=== PATIENT | female | born 1960 | race Caucasian/White ===

== ENCOUNTER → 2016-12-23 | Outpatient (CLI) | payer OTHER ==
--- NOTE | 2016-12-23 14:38 | XR ---
Lumbar spine HISTORY: Low back pain 3 views of the lumbar spine, no comparisons There is multilevel spondylosis. Lumbar vertebral bodies show preserved height and alignment. Loss of disc height at the intervertebral levels especially at L5-S1 and L1-T12 L1. Sclerosis present in the posterior elements. Bone mineralization is reduced. IMPRESSION: Degenerative disc disease, facet arthropathy, osteopenia.
== END | disposition home or self-care (01) ==
LOC: RADXRMAIN 09:38
PROVIDERS: ATTEND Family Medicine
DX: M51.36 Other intervertebral disc degeneration, lumbar region (principal); M12.88 Other specific arthropathies, not elsewhere classified, other specified site; M85.80 Other specified disorders of bone density and structure, unspecified site
CPT/HCPCS: 72100

== ENCOUNTER → 2017-06-09 | Outpatient (CLI) | payer OTHER | END | disposition home or self-care (01) | LOC: LABWHC1 13:43 | PROVIDERS: ATTEND Physician Assistant | DX: Z01.818 Encounter for other preprocedural examination (principal) | CPT/HCPCS: 93005 ==

== ENCOUNTER 2017-11-26 09:45 | Day surgery (SDC) | payer OTHER ==
[2017-11-24 09:47] VITALS: BMI 55.7
[~2017-11-26 09:45] MED LIST: LACTATED RINGERS 1,000 ML IV SCH
[2017-11-26 11:00] VITALS: RESP 18; TEMP 97.2
[2017-11-26] MEDS ORDERED: LIDOCAINE 1% 20 ML VIAL (10MG/ML) FOR IV START INTRADERMA ONE (11:02)
[2017-11-26] MEDS ORDERED: PROPOFOL 10 MG/ML 20 ML VIAL IV ONE (11:53)
[2017-11-26] MEDS ORDERED: LIDOCAINE 1% INJ 10MG/ML (20 ML MDV) ONE (11:53)
--- NOTE | 2017-11-26 12:15 | P.PCN ---
Date of Procedure: 11/26/17 Procedure(s) Performed: BRIEF HISTORY: Patient is a 57-year-old pleasant white female, scheduled for an elective colonoscopy as a part of evaluation of right lower quadrant abdominal pain for the last 6 months duration. She has the symptoms once or twice a week and lasts for almost 2-3 hours each time. She GI via and workup was negative. PROCEDURE PERFORMED: Colonoscopy with snare polypectomy. PREOPERATIVE DIAGNOSIS: Right lower quadrant abdominal pain and change in bowel habits. IV sedation per Anesthesia. PROCEDURE: After informed consent was obtained, the patient, was brought into the endoscopy unit. IV sedation was administered by Anesthesia under continuous monitoring. Digital rectal examination was normal. Initially the Olympus CF- 160 flexible video colonoscope was then inserted in the rectum, gradually advanced into the cecum without any difficulty. Careful examination was performed as the scope was gradually being withdrawn. Ileocecal valve and the appendiceal orifice were visualized and appeared normal. Prep was excellent. Mucosa of the cecum, appeared normal. In the ascending colon there was a 7 mm sessile polyp removed by snare polypectomy. The rest of the ascending colon, transverse colon, descending colon, sigmoid colon, and rectum appeared normal. In the distal sigmoid colon there was a 3-4 mm sessile polyp removed by snare polypectomy. Retroflexion was performed in the rectum and no lesions were seen. The patient tolerated the procedure well. IMPRESSION: 7 mm sessile ascending colon polyp status post polypectomy 3-4 mm sessile sigmoid colon polyp status post polypectomy RECOMMENDATIONS: Findings of this examination were discussed with the patient as well as a family. She was advised to follow with the biopsy results. If the biopsy shows a tubular adenoma she can have a repeat colonoscopy in 5 years.
[2017-11-26 12:20] VITALS: PULSE 75
[2017-11-26 12:47] VITALS: BP 130/72
== END 2017-11-26 13:03 | disposition home or self-care (01) ==
LOC: ORWHC2ENDO 09:45
PROVIDERS: ATTEND Internal Medicine Gastroenterology
DX: D12.5 Benign neoplasm of sigmoid colon (principal); R19.4 Change in bowel habit; R10.31 Right lower quadrant pain; I10 Essential (primary) hypertension; E66.01 Morbid (severe) obesity due to excess calories; Z79.899 Other long term (current) drug therapy; Z88.5 Allergy status to narcotic agent; Z68.43 Body mass index [BMI] 50.0-59.9, adult
CPT/HCPCS: 81025; 88305; 45385; J2001; J2704

== ENCOUNTER → 2018-01-18 | Outpatient (CLI) | payer OTHER ==
--- NOTE | 2018-01-18 12:34 | US ---
EXAMINATION TYPE: US venous doppler duplex LE LT DATE OF EXAM: 01/18/2018 11:22 AM COMPARISON: US CLINICAL HISTORY: M79.605 PAIN IN LT LEG. SIDE PERFORMED: Left TECHNIQUE: The lower extremity deep venous system is examined utilizing real time linear array sonog isabella with graded compression, doppler sonography and color-flow sonography. VESSELS IMAGED: External Iliac Vein (EIV) Common Femoral Vein Deep Femoral Vein Greater Saphenous Vein * Femoral Vein Popliteal Vein Small Saphenous Vein * Proximal Calf Veins (* superficial vessels) Scanned patient's area of concern, posterior left calf, no abnormality noted. Limited exam due to gracie ma and patient body habitus. Left Leg: Negative for DVT Grayscale, color doppler, spectral doppler imaging performed of the deep veins of the left lower extr emity. There is normal flow, compressibility, vascular waveforms. IMPRESSION: No sonographic evidence of deep venous thrombosis within the left lower extremity.
== END ==
LOC: RADUSWWP 11:20
PROVIDERS: ATTEND Family Medicine
DX: M79.605 Pain in left leg (principal)

== ENCOUNTER → 2019-02-16 | Outpatient (CLI) | payer OTHER ==
--- NOTE | 2019-02-16 08:01 | US ---
EXAMINATION TYPE: US abdomen complete DATE OF EXAM: 02/16/2019 COMPARISON: ct 2014 CLINICAL HISTORY: R10.31 Right Upper quadrant pain. Large body habitus limited visualization EXAM MEASUREMENTS: Liver Length: 15.9 cm Gallbladder Wall: 0.2 cm CBD: 0.2 cm Spleen: 8.8 cm Right Kidney: 10.3 x 5.1 x 5.3 cm Left Kidney: 10.7 x 5.1 x 5.5 cm Pancreas: Tail obscured by overlying bowel gas Liver: Increased in echo pattern Gallbladder: wnl Evidence for sonographic Marcus's sign: No CBD: wnl Spleen: wnl Right Kidney: wnl Left Kidney: Hypoechoic indeterminate nodule upper pole 0.8 x 1.0 x 1.1 cm Upper IVC: Obscured by overlying bowel gas Abd Aorta: Obscured by overlying bowel gas portions seen wnl IMPRESSION: 1. There is a small hypoechoic nodule involving the upper pole the left kidney measuring 1.1 cm 2 sma ll to characterize could be followed on six-month basis. 2. Increased echo pattern to the liver is nonspecific may been the basis of fatty infiltration hepati c steatosis. Hepatitis not excluded correlate with hepatic enzymes.
--- NOTE | 2019-02-16 08:03 | US ---
EXAMINATION TYPE: US pelvis complete transvag DATE OF EXAM: 02/16/2019 COMPARISON: CT 2014 CLINICAL HISTORY: R10.31 Right Upper quadrant pain. Large body habitus limited TECHNIQUE: . Transabdominal sonographic images of the pelvis were acquired. Transvaginal sonographi c images were medically necessary to better assess the following anatomy: uterus and adnexa Date of LMP: pt 58 unsure EXAM MEASUREMENTS: Uterus: 9.0 x 4.9 x 5.8 cm Endometrial Stripe: 0.2 cm Right Ovary: 1.9x 1.6 x 1.7 cm Left Ovary: obscured by bowel 1. Uterus: Anteverted fibroid fundal 1.6 x 0.6 x 2.0 cm 2. Endometrium: wnl 3. Right Ovary: Obscured by overlying bowel gas portions seen wnl 4. Left Ovary: Obscured by overlying bowel gas . 5. Bilateral Adnexa: wnl 6. Posterior cul-de-sac: wnl IMPRESSION: 1. Hypoechoic 2 cm nodule involving the uterine fundus suggestive of a fibroid.
== END | disposition home or self-care (01) ==
LOC: RADUSWWP 06:52
PROVIDERS: ATTEND Family Medicine
DX: N85.8 Other specified noninflammatory disorders of uterus (principal); N28.89 Other specified disorders of kidney and ureter; R93.2 Abnormal findings on diagnostic imaging of liver and biliary tract; R10.31 Right lower quadrant pain
CPT/HCPCS: 76700; 76830; 76856

== ENCOUNTER → 2019-03-02 | Outpatient (CLI) | payer OTHER ==
[2019-03-02 23:50] LABS: Albumin 4.5 g/dL (3.80-4.90); Albumin/Globulin Ratio 1.8 (1.60-3.17); Bilirubin, Conjugated 0.2 mg/dL (0.20-0.40); Bilirubin,Unconjugated 0.4 mg/dL; Globulin 2.5 g/dL (1.6-3.3); Total Bilirubin 0.6 mg/dL (0.2-1.2)
[2019-03-03 00:33] LABS: Hepatitis B Core IgM Non-Reactive (Non-Reactive); Hepatitis B Surface AB- Quant 3.5 mIU/mL
[2019-03-03 14:37] LABS: Hepatitis BE Antibody NEG (Negative)
[2019-03-03 14:38] LABS: Hepatitis BE Antigen NEG (Negative)
== END | disposition home or self-care (01) ==
LOC: LABWHC1 15:05
PROVIDERS: ATTEND Physician Assistant
DX: R76.8 Other specified abnormal immunological findings in serum (principal)
CPT/HCPCS: 36415; 80076; 86704; 86705; 86706; 86707; 87340; 87350; 87517

== ENCOUNTER 2019-07-17 14:14 | Emergency (ER) | payer OTHER ==
[2019-07-17 14:19] VITALS: BP 154/88; PULSE 102; RESP 20; TEMP 97.6
[2019-07-17] MEDS ORDERED: ONDANSETRON ODT 4 MG TAB PO STA (14:23)
[2019-07-17] MEDS ORDERED: HYDROmorphone 1 MG/ML 1 ML SYRINGE IM STA (14:23)
--- NOTE | 2019-07-17 14:26 | ED ---
Fall HPI - General Chief Complaint: Fall Stated Complaint: fall/wrist pain Time Seen by Provider: 07/17/19 14:20 Source: patient, RN notes reviewed Mode of arrival: ambulatory Limitations: no limitations - History of Present Illness Initial Comments: 58-year-old female presents emergency Department chief complaint of left wrist pain. Patient states that she fell on the ice. Patient complains of severe left wrist pain. Denies any head injury no other muscle skeletal injury. She is [id number]. Patient states she is unable move her left wrist secondary to pain. - Related Data Home Medications Medication Instructions Recorded Confirmed Losartan-Hctz 50-12.5 mg [Hyzaar 1 each PO DAILY 11/24/17 11/26/17 50-12.5] Allergies Allergy/AdvReac Type Severity Reaction Status Date / Time morphine Allergy Nausea & Verified 07/17/19 14:19 Vomiting Review of Systems ROS Statement: Those systems with pertinent positive or pertinent negative responses have been documented in the HPI. ROS Other: All systems not noted in ROS Statement are negative. Past Medical History Past Medical History: GERD/Reflux, Hypertension Additional Past Medical History / Comment(s): Depression, peptic ulcer disease, STOMACH ULCER, CYSTS ON RIGHT OVARY, HITAL HERNIA History of Any Multi-Drug Resistant Organisms: None Reported Past Surgical History: Tubal Ligation Additional Past Surgical History / Comment(s): D&C Past Anesthesia/Blood Transfusion Reactions: No Reported Reaction Additional Past Anesthesia/Blood Transfusion Reaction / Comment(s): no problems with prior blood transfusion Past Psychological History: Depression Smoking Status: Never smoker Past Alcohol Use History: None Reported Past Drug Use History: None Reported - Past Family History Mother Family Medical History: No Reported History General Exam Limitations: no limitations General appearance: alert, in no apparent distress Head exam: Present: atraumatic, normocephalic, normal inspection Neck exam: Present: normal inspection, full ROM. Absent: tenderness, meningismus, lymphadenopathy Respiratory exam: Present: normal lung sounds bilaterally. Absent: respiratory distress, wheezes, rales, rhonchi, stridor Cardiovascular Exam: Present: regular rate, normal rhythm, normal heart sounds. Absent: systolic murmur, diastolic murmur, rubs, gallop, clicks Extremities exam: Present: other (Left wrist there is moderate swelling, tenderness with palpation there is no hand or proximal forearm tenderness. No vascular intact limited range of motion of left wrist) Skin exam: Present: warm, dry, intact, normal color. Absent: rash Course Vital Signs 07/17/19 14:16 Temperature 97.6 F Pulse Rate 102 H Respiratory 20 Rate Blood Pressure 154/88 O2 Sat by Pulse 99 Oximetry Procedures - Orthopedic Splinting/Casting Injury #1 Side: left Upper Extremity Injury Location: short arm, wrist Upper Extremity Immobilizer: volar splint, synthetic pre-padded splint Medical Decision Making - Medical Decision Making X-rays obtained of the left wrist shows comminuted impacted radial fracture. Patient was splinted and will follow-up with orthopedics. Disposition Clinical Impression: Fall, Fracture of left distal radius Disposition: HOME SELF-CARE Condition: Stable Instructions (If sedation given, give patient instructions): Arm Fracture in Adults (ED) Additional Instructions: Please return to the Emergency Department if symptoms worsen or any other concerns. Is patient prescribed a controlled substance at d/c from ED?: No Referrals: Mauricio Walker DO [Primary Care Provider] - 1-2 days Helder Bonilla MD [Medical Doctor] - 1-2 days Time of Disposition: 14:50
--- NOTE | 2019-07-17 14:36 | XR ---
EXAMINATION TYPE: XR wrist complete LT DATE OF EXAM: 07/17/2019 CLINICAL HISTORY: pain TECHNIQUE: Frontal, lateral and oblique images of the left wrist are obtained. COMPARISON: None. FINDINGS: Mildly comminuted and impacted distal radial fracture identified. No definite intra-articul ar extension. Placement is estimated at 2 mm. Mild dorsal angulation seen. No additional fractures ev ident at this time. Soft tissue edema noted. IMPRESSION: Oblique comminuted and impacted distal radial fracture. ICD 10 closed FRACTURE, INITIAL EVALUATION
[2019-07-17] MEDS ORDERED: ACET/COD 300 MG/30 MG STARTER PACK 6 TAB BTL PO STA (14:59)
== END 2019-07-17 15:10 | disposition home or self-care (01) ==
LOC: EC 14:14
DX: S52.592A Other fractures of lower end of left radius, initial encounter for closed fracture (principal); I10 Essential (primary) hypertension; Z88.5 Allergy status to narcotic agent; Z79.899 Other long term (current) drug therapy; W00.0XXA Fall on same level due to ice and snow, initial encounter; Y92.89 Other specified places as the place of occurrence of the external cause
CPT/HCPCS: 73110; 99283; 96372; 29125; J1170

== ENCOUNTER → 2019-07-21 | Outpatient (CLI) | payer OTHER ==
--- NOTE | 2019-07-21 13:15 | CT ---
EXAMINATION TYPE: CT wrist LT wo con DATE OF EXAM: 07/21/2019 COMPARISON: None HISTORY: left wrist fracture CT DLP: 108.[address] of the left wrist with reconstruction imaging. TECHNIQUE: Unenhanced CT of the left wrist was performed with bone and soft tissue window settings mishra bmitted in the axial coronal and sagittal planes. At a separate workstation 3-D TR imaging was obtai urvashi. FINDINGS: There is a comminuted distal radial fracture with intra-articular extension. Displacement is noted at 3 cm. No significant angulation. No additional fracture seen. Soft tissue swelling noted. IMPRESSION: 1. Comminuted distal radial fracture with intra-articular extension.
== END | disposition home or self-care (01) ==
LOC: RADCTMAIN 12:05
PROVIDERS: ATTEND Orthopaedic Surgery
DX: S52.572A Other intraarticular fracture of lower end of left radius, initial encounter for closed fracture (principal)

== ENCOUNTER 2019-07-22 14:23 | Emergency (ER) | payer OTHER ==
[2019-07-22 14:49] VITALS: BP 136/71; PULSE 75; RESP 16; TEMP 98.1
--- NOTE | 2019-07-22 15:09 | ED ---
General Adult HPI - General Chief complaint: Recheck/Abnormal Lab/Rx Stated complaint: Cast issues Time Seen by Provider: 07/22/19 14:49 Source: patient, RN notes reviewed Mode of arrival: ambulatory Limitations: no limitations - History of Present Illness Initial comments: 58-year-old female with a past medical history GERD, hypertension presents to [facility] emergency department for difficulty with cast. Patient states that on July 17 she broke her left wrist due to a fall. Patient had splint please at that time. When she saw orthopedics plaster cast was placed in a sugar tong fashion. However today patient states it is very loose. And actually upon arrival to the ER she has removed the cast completely. Patient denies any increased pain. States that orthopedics was closed so she called her primary care provider who recommended she come to the emergency department for a splint.Patient has no other complaints at this time including shortness of breath, chest pain, abdominal pain, nausea or vomiting, headache, or visual changes. - Related Data Home Medications Medication Instructions Recorded Confirmed Losartan-Hctz 50-12.5 mg [Hyzaar 1 each PO DAILY 11/24/17 11/26/17 50-12.5] Allergies Allergy/AdvReac Type Severity Reaction Status Date / Time morphine Allergy Nausea & Verified 07/22/19 14:48 Vomiting Review of Systems ROS Statement: Those systems with pertinent positive or pertinent negative responses have been documented in the HPI. ROS Other: All systems not noted in ROS Statement are negative. Past Medical History Past Medical History: GERD/Reflux, Hypertension Additional Past Medical History / Comment(s): Depression, peptic ulcer disease, STOMACH ULCER, CYSTS ON RIGHT OVARY, HITAL HERNIA History of Any Multi-Drug Resistant Organisms: None Reported Past Surgical History: Tubal Ligation Additional Past Surgical History / Comment(s): D&C Past Anesthesia/Blood Transfusion Reactions: No Reported Reaction Additional Past Anesthesia/Blood Transfusion Reaction / Comment(s): no problems with prior blood transfusion Past Psychological History: Depression Smoking Status: Never smoker Past Alcohol Use History: None Reported Past Drug Use History: None Reported - Past Family History Mother Family Medical History: No Reported History General Exam Limitations: no limitations General appearance: alert, in no apparent distress Head exam: Present: atraumatic, normocephalic, normal inspection Eye exam: Present: normal appearance, PERRL, EOMI. Absent: scleral icterus, conjunctival injection, periorbital swelling ENT exam: Present: normal exam, mucous membranes moist Neck exam: Present: normal inspection. Absent: tenderness, meningismus, lymphadenopathy Respiratory exam: Present: normal lung sounds bilaterally. Absent: respiratory distress, wheezes, rales, rhonchi, stridor Cardiovascular Exam: Present: regular rate, normal rhythm, normal heart sounds. Absent: systolic murmur, diastolic murmur, rubs, gallop, clicks Extremities exam: Present: other (Patient has mild edema and ecchymosis noted of the distal left wrist however neurovascular status is intact. Patient has sensation to all digits of the left hand with a radial pulse of 2+.) Course Vital Signs 07/22/19 14:47 Temperature 98.1 F Pulse Rate 75 Respiratory 16 Rate Blood Pressure 136/71 O2 Sat by Pulse 97 Oximetry Procedures - Orthopedic Splinting/Casting Injury #1 Side: left Upper Extremity Injury Location: wrist Upper Extremity Immobilizer: sugar tong splint Additional Comments: Neurovascular status intact in the left upper extremity Medical Decision Making - Medical Decision Making 58-year-old female presents for cast problems. Cast was loose and subsequently came off her arm today. Swelling likely decreased loosening the cast. I did do a skin exam and there are no lacerations or evidence of infection. Patient denies any increased pain. There is minimal edema with minimal ecchymosis noted of the distal left wrist. I did review x-ray and computed tomography scan. Patient states that they did reduce the wrist somewhat before placing her in this cast. At this time we are unable to use plaster secondary to not having any sinks compatible for disposal of this. Therefore patient was splinted with OCL in a sugar tong fashion. Neurovascular status intact. I recommended she follow up with Dr. Urbina on Wednesday for a new plaster cast. She does agree to this. I discussed this case with attending Dr. Navarrete who agrees with this assessment and treatment plan. Disposition Clinical Impression: Problem with immobilizing cast Disposition: HOME SELF-CARE Condition: Good Instructions (If sedation given, give patient instructions): Cast Care (ED), Wrist Fracture in Adults (ED) Additional Instructions: Please keep splint in place as best as possible. Follow up with Dr. Urbina on Wednesday for a plaster cast. Return to the emergency department if you have any worsening symptoms or any other difficulties with the cast. Is patient prescribed a controlled substance at d/c from ED?: No Referrals: Mauricio Walker DO [Primary Care Provider] - 1-2 days Doroteo Urbina DO [Medical Doctor] - 1-2 days Time of Disposition: 15:08
== END 2019-07-22 15:17 | disposition home or self-care (01) ==
LOC: EC 14:23
DX: Z47.89 Encounter for other orthopedic aftercare (principal); R58 Hemorrhage, not elsewhere classified; R60.9 Edema, unspecified; I10 Essential (primary) hypertension; Z79.899 Other long term (current) drug therapy; Z88.5 Allergy status to narcotic agent; Z87.81 Personal history of (healed) traumatic fracture
CPT/HCPCS: 29125; 99282

== ENCOUNTER → 2019-08-16 | Outpatient (CLI) | payer OTHER | END | disposition home or self-care (01) | LOC: LABWHC1 13:58 | PROVIDERS: ATTEND Orthopaedic Surgery | DX: M25.532 Pain in left wrist (principal); S52.571D Other intraarticular fracture of lower end of right radius, subsequent encounter for closed fracture with routine healing | CPT/HCPCS: 36415; 82306 ==

== ENCOUNTER → 2019-10-09 | Outpatient (CLI) | payer OTHER ==
--- NOTE | 2019-10-09 16:57 | US ---
EXAMINATION TYPE: US transvaginal DATE OF EXAM: 10/09/2019 COMPARISON: US CLINICAL HISTORY: N95.0 Postmenopausal bleeding. Pt states on/off vaginal bleeding x 2 years, pt not on HRT's TECHNIQUE: Transvaginal (TV). Transvaginal sonographic images of the pelvis were acquired. EXAM MEASUREMENTS: Uterus: 9.1 x 4.6 x 6.2 cm Endometrial Stripe: 0.5 cm 1. Uterus: Anteverted Heterogeneous with possible fibroid posterior/left= 2.5 x 2.2 x 2.8 cm, and possible fibroid just anterior to endometrium/indenting into endo= 1.5 x 1.3 x 1.5 cm 2. Endometrium: Upper limits of normal for symptomatic pt 3. Right Ovary: Obscured by overlying bowel gas 4. Left Ovary: Obscured by overlying bowel gas 5. Bilateral Adnexa: wnl 6. Posterior cul-de-sac: wnl IMPRESSION: Ovaries not seen. No adnexal mass or free fluid. Uterine fibroids.
== END | disposition home or self-care (01) ==
LOC: RADUSWWP 16:21
PROVIDERS: ATTEND Family Medicine
DX: D25.9 Leiomyoma of uterus, unspecified (principal)
CPT/HCPCS: 76830

== ENCOUNTER 2019-11-10 10:12 | Emergency (ER) | payer OTHER ==
[2019-11-10 10:18] VITALS: BP 166/85; PULSE 85; RESP 16; TEMP 97.7
[2019-11-10] MEDS ORDERED: SODIUM CHLORIDE 0.9% 1,000 ML IV STA (10:35)
[2019-11-10] MEDS ORDERED: ONDANSETRON 4 MG/2 ML VIAL IVP STA (10:35)
[2019-11-10] MEDS ORDERED: KETOROLAC 30 MG/ML 1 ML VIAL IVP STA (10:35)
--- NOTE | 2019-11-10 10:40 | ED ---
Abdominal Pain HPI - General Chief Complaint: Abdominal Pain Stated Complaint: Abdominal pain Time Seen by Provider: 11/10/19 10:18 Source: patient Mode of arrival: ambulatory Limitations: no limitations - History of Present Illness Initial Comments: Patient is a 59-year-old female, with history of diabetes, hypertension, presenting to the emergency Department with complaints of right-sided abdominal pain for 3 days. Patient states she was sent to the ER from urgent care today. Patient states she noticed pain on her right side approximately 3 days ago in the pain has just been getting worse. She describes the pain as sharp and intensifies when she is standing. Patient denies any alleviating factors other than sitting down. Patient admits to mild nausea, no vomiting or diarrhea. She admits to history of tubal ligation and D&C, no other abdominal surgeries. She has been seen [facility]ICIAN secondary to vaginal bleeding and large fibroids. She's been having regular bowel movements and has no urinary complaints. She admits to having hot flashes however no documented fevers. She denies chest pain, shortness of breath. She has no other complaints at this time. Upon arrival to the ER her vital signs are stable. - Related Data Home Medications Medication Instructions Recorded Confirmed Losartan-Hctz 50-12.5 mg [Hyzaar 1 each PO DAILY 11/24/17 11/26/17 50-12.5] Allergies Allergy/AdvReac Type Severity Reaction Status Date / Time morphine Allergy Nausea & Verified 11/10/19 10:18 Vomiting Review of Systems ROS Statement: Those systems with pertinent positive or pertinent negative responses have been documented in the HPI. ROS Other: All systems not noted in ROS Statement are negative. Past Medical History Past Medical History: GERD/Reflux, Hypertension Additional Past Medical History / Comment(s): Depression, peptic ulcer disease, STOMACH ULCER, CYSTS ON RIGHT OVARY, HITAL HERNIA History of Any Multi-Drug Resistant Organisms: None Reported Past Surgical History: Tubal Ligation Additional Past Surgical History / Comment(s): D&C Past Anesthesia/Blood Transfusion Reactions: No Reported Reaction Additional Past Anesthesia/Blood Transfusion Reaction / Comment(s): no problems with prior blood transfusion Past Psychological History: Depression Smoking Status: Never smoker Past Alcohol Use History: None Reported Past Drug Use History: None Reported - Past Family History Mother Family Medical History: No Reported History General Exam - General Exam Comments Initial Comments: GENERAL: Well-appearing, well-nourished and in no acute distress. Obese. HEAD: Atraumatic, normocephalic. EYES: Pupils equal round and reactive to light, extraocular movements intact, sclera anicteric, conjunctiva are normal. ENT: TMs normal, nares patent, oropharynx clear without exudates. Moist mucous membranes. NECK: Normal range of motion, supple without lymphadenopathy or JVD. LUNGS: Breath sounds clear to auscultation bilaterally and equal. No wheezes rales or rhonchi. HEART: Regular rate and rhythm without murmurs, rubs or gallops. ABDOMEN: Tender to palpation right side of the abdomen, increased in the right lower quadrant as well as mild right upper quadrant pain.. Patient has some also mild right sided flank pain. Soft, normoactive bowel sounds. No guarding, no rebound. No masses appreciated. : Deferred EXTREMITIES: Normal range of motion, no pitting or edema. No clubbing or cyanosis. NEUROLOGICAL: Normal speech, normal gait. PSYCH: Normal mood, normal affect. SKIN: Warm, Dry, normal turgor, no rashes or lesions noted. Limitations: no limitations Course Vital Signs 11/10/19 11/10/19 10:16 13:38 Temperature 97.7 F 97.7 F Pulse Rate 85 85 Respiratory 16 16 Rate Blood Pressure 166/85 166/85 O2 Sat by Pulse 96 96 Oximetry Medical Decision Making - Medical Decision Making Patient is a 59-year-old female with diabetes and hypertension presenting with right-sided abdominal pain 3 days. Vitals are stable. Lab work shows no acute findings. Lactic acid is 1.3. Glucose was slightly up at 148. Urine does show blood however no signs of infection. CT of the abdomen shows bilateral renal cysts, no other suspicious abnormalities found. Appendix appears normal. Patient was given fluids and Toradol and reports improvement in her symptoms. I discussed with patient this is most likely related to her fibroids or viral in nature. Patient will follow up with her [facility] [facility] [facility] TECHNICIAN as well as her PCP. She is stable for discharge at this time and she is in agreement with this plan of care. Return parameters were discussed with the patient and she verbalized understanding. Case discussed with Dr. Faustin. - Lab Data Result diagrams: 11/10/19 11:20 11/10/19 11:20 Lab Results 11/10/19 11/10/19 11/10/19 Range/Units 11:20 11:20 11:20 WBC 7.4 (3.8-10.6) k/uL RBC 5.14 (3.80-5.40) m/uL Hgb 14.9 (11.4-16.0) gm/dL Hct 44.2 (34.0-46.0) % MCV 86.0 (80.0-100.0) fL MCH 28.9 (25.0-35.0) pg MCHC 33.6 (31.0-37.0) g/dL RDW 12.9 (11.5-15.5) % Plt Count 328 (150-450) k/uL Neutrophils % 58 % Lymphocytes % 30 % Monocytes % 6 % Eosinophils % 2 % Basophils % 1 % Neutrophils # 4.3 (1.3-7.7) k/uL Lymphocytes # 2.2 (1.0-4.8) k/uL Monocytes # 0.5 (0-1.0) k/uL Eosinophils # 0.2 (0-0.7) k/uL Basophils # 0.1 (0-0.2) k/uL PT 9.7 (9.0-12.0) sec INR 0.9 (<1.2) APTT 22.4 (22.0-30.0) sec Sodium 138 (137-145) mmol/L Potassium 4.3 (3.5-5.1) mmol/L Chloride 103 (98-107) mmol/L Carbon Dioxide 29 (22-30) mmol/L Anion Gap 6 mmol/L BUN 16 (7-17) mg/dL Creatinine 0.61 (0.52-1.04) mg/dL Est GFR (CKD-EPI)AfAm >90 (>60 ml/min/1.73 sqM) Est GFR (CKD-EPI)NonAf >90 (>60 ml/min/1.73 sqM) Glucose 148 H (74-99) mg/dL Plasma Lactic Acid Herman (0.7-2.0) mmol/L Calcium 9.4 (8.4-10.2) mg/dL Total Bilirubin 0.6 (0.2-1.3) mg/dL AST 21 (14-36) U/L ALT 21 (4-34) U/L Alkaline Phosphatase 78 (38-126) U/L Total Protein 7.3 (6.3-8.2) g/dL Albumin 4.2 (3.5-5.0) g/dL Amylase 43 (30-110) U/L Lipase 80 (23-300) U/L Urine Color Urine Appearance (Clear) Urine pH (5.0-8.0) Ur Specific [place] (1.001-1.035) Urine Protein (Negative) Urine Glucose (UA) (Negative) Urine Ketones (Negative) Urine Blood (Negative) Urine Nitrite (Negative) Urine Bilirubin (Negative) Urine Urobilinogen (<2.0) mg/dL Ur Leukocyte Esterase (Negative) Urine RBC (0-5) /hpf Urine WBC (0-5) /hpf Ur Squamous Epith Cells (0-4) /hpf Urine Bacteria (None) /hpf Urine Mucus (None) /hpf 11/10/19 11/10/19 Range/Units 11:20 11:59 WBC (3.8-10.6) k/uL RBC (3.80-5.40) m/uL Hgb (11.4-16.0) gm/dL Hct (34.0-46.0) % MCV (80.0-100.0) fL MCH (25.0-35.0) pg MCHC (31.0-37.0) g/dL RDW (11.5-15.5) % Plt Count (150-450) k/uL Neutrophils % % Lymphocytes % % Monocytes % % Eosinophils % % Basophils % % Neutrophils # (1.3-7.7) k/uL Lymphocytes # (1.0-4.8) k/uL Monocytes # (0-1.0) k/uL Eosinophils # (0-0.7) k/uL Basophils # (0-0.2) k/uL PT (9.0-12.0) sec INR (<1.2) APTT (22.0-30.0) sec Sodium (137-145) mmol/L Potassium (3.5-5.1) mmol/L Chloride (98-107) mmol/L Carbon Dioxide (22-30) mmol/L Anion Gap mmol/L BUN (7-17) mg/dL Creatinine (0.52-1.04) mg/dL Est GFR (CKD-EPI)AfAm (>60 ml/min/1.73 sqM) Est GFR (CKD-EPI)NonAf (>60 ml/min/1.73 sqM) Glucose (74-99) mg/dL Plasma Lactic Acid Herman 1.3 (0.7-2.0) mmol/L Calcium (8.4-10.2) mg/dL Total Bilirubin (0.2-1.3) mg/dL AST (14-36) U/L ALT (4-34) U/L Alkaline Phosphatase (38-126) U/L Total Protein (6.3-8.2) g/dL Albumin (3.5-5.0) g/dL Amylase (30-110) U/L Lipase (23-300) U/L Urine Color Yellow Urine Appearance Cloudy H (Clear) Urine pH 6.5 (5.0-8.0) Ur Specific [place] 1.022 (1.001-1.035) Urine Protein Negative (Negative) Urine Glucose (UA) 1+ H (Negative) Urine Ketones Negative (Negative) Urine Blood Moderate H (Negative) Urine Nitrite Negative (Negative) Urine Bilirubin Negative (Negative) Urine Urobilinogen <2.0 (<2.0) mg/dL Ur Leukocyte Esterase Negative (Negative) Urine RBC >182 H (0-5) /hpf Urine WBC 5 (0-5) /hpf Ur Squamous Epith Cells 1 (0-4) /hpf Urine Bacteria Rare H (None) /hpf Urine Mucus Rare H (None) /hpf Disposition Clinical Impression: Abdominal pain Disposition: HOME SELF-CARE Condition: Stable Instructions (If sedation given, give patient instructions): Abdominal Pain ( ED) Additional Instructions: Please return to the Emergency Department if symptoms worsen or any other concerns. Follow-up with PCP. Continue take Tylenol and/or Motrin for discomfort. May alternate between both medications. Trial of gas-X for gas pains. Is patient prescribed a controlled substance at d/c from ED?: No Referrals: Mauricio Walker DO [Primary Care Provider] - 1-2 days
[2019-11-10 11:57] LABS: INR 0.9 (<1.2); Partial Thromboplastin Time 22.4 sec (22.0-30.0); Prothrombin Time 9.7 sec (9.0-12.0)
[2019-11-10 11:58] LABS: Basophils # (A) 0.1 k/uL (0-0.2); Basophils % (A) 1 %; Eosinophils # (A) 0.2 k/uL (0-0.7); Eosinophils % (A) 2 %; HCT 44.2 % (34.0-46.0); HGB 14.9 gm/dL (11.4-16.0); Lymphocytes # (A) 2.2 k/uL (1.0-4.8); Lymphocytes % (A) 30 %; MCH 28.9 pg (25.0-35.0); MCHC 33.6 g/dL (31.0-37.0); Mean Platelet Volume 7.2; Monocytes # (A) 0.5 k/uL (0-1.0); Monocytes % (A) 6 %; Neutrophils # (A) 4.3 k/uL (1.3-7.7); Neutrophils % (A) 58 %; Platelet Count 328 k/uL (150-450); RBC 5.14 m/uL (3.80-5.40); RDW 12.9 % (11.5-15.5); WBC 7.4 k/uL (3.8-10.6)
[2019-11-10 12:17] LABS: ALT 21 U/L (4-34); AST 21 U/L (14-36); African American GFR (CKD) >90 (>60 ml/min/1.73 sqM); Albumin 4.2 g/dL (3.5-5.0); Alkaline Phosphatase 78 U/L (38-126); Amylase 43 U/L (30-110); Anion Gap 6 mmol/L; Blood Urea Nitrogen 16 mg/dL (7-17); Calcium 9.4 mg/dL (8.4-10.2); Carbon Dioxide 29 mmol/L (22-30); Chloride 103 mmol/L (98-107); Glucose 148 mg/dL (74-99); Non-African American GFR(CKD) >90 (>60 ml/min/1.73 sqM); Potassium 4.3 mmol/L (3.5-5.1); Sodium 138 mmol/L (137-145); Total Bilirubin 0.6 mg/dL (0.2-1.3); Total Protein 7.3 g/dL (6.3-8.2)
[2019-11-10 12:31] LABS: Appearance,Urine Cloudy (Clear); Bacteria,Urine Rare /hpf; Bilirubin,Urine Negative (Negative); Blood,Urine Moderate (Negative); Color,Urine Yellow; Glucose,Urine (UA) 1+ (Negative); Ketones,Urine Negative (Negative); Leukocyte Esterase,Urine Negative (Negative); Mucus,Urine Rare /hpf; Nitrite,Urine Negative (Negative); PH, Urine 6.5 (5.0-8.0); Protein,Urine Negative (Negative); RBC,Urine >182 /hpf (0-5); Specific Gravity,Urine 1.022 (1.001-1.035); Squamous Epithelial Cell,Urine 1 /hpf (0-4); Urobilinogen,Urine <2.0 mg/dL (<2.0); WBC,Urine 5 /hpf (0-5)
--- NOTE | 2019-11-10 12:34 | CT ---
EXAMINATION TYPE: CT abdomen pelvis w con DATE OF EXAM: 11/10/2019 COMPARISON: 04/30/2015 INDICATION: Right sided pain with nausea DLP: 3208 mGycm, Automated exposure control for dose reduction was used. CONTRAST: 100 mL of Isovue 300. Study performed without Oral Contrast TECHNIQUE: Axial images were obtained from above the diaphragm to the pubic rami in the axial plane a t 5 mm thick sections. Reconstructed images are reviewed on the computer in the coronal plane. FINDINGS: Limited CT sections are obtained the lung bases. The lung bases are clear. CT ABDOMEN: Liver: Minimal fatty infiltration liver appears to be present. Spleen: Normal Pancreas: Normal Adrenal glands: The adrenal glands are normal. Gallbladder: Normal Kidneys: No masses are evident. No hydronephrosis is present. There is a 1.2 cm cyst at the inferio r anterior right kidney and anterior superior left renal cyst measuring 2.1 cm. Delayed images were obtained through the kidneys, which remain unremarkable. Aorta: Normal Inferior vena cava: Normal. CT PELVIS: Loops of bowel within the abdomen and pelvis are normal. Study is without oral contrast limiting bowel evaluation. Appendix: Normal as visualized. Urinary bladder: Normal. Genitourinary structures: Uterus is unremarkable. Adnexal regions are clear. Osseous structures: No suspicious lytic or sclerotic lesions. IMPRESSIONS: 1. No suspicious abnormality to account for right abdominal pain. 2. Bilateral renal cysts. 3. Minimal fatty infiltration liver
== END 2019-11-10 13:38 | disposition home or self-care (01) ==
LOC: EC 10:12
DX: R10.9 Unspecified abdominal pain (principal); R11.0 Nausea; N28.1 Cyst of kidney, acquired; E11.9 Type 2 diabetes mellitus without complications; I10 Essential (primary) hypertension; Z79.899 Other long term (current) drug therapy; Z88.5 Allergy status to narcotic agent
CPT/HCPCS: 36415; 80053; 82150; 83605; 83690; 85025; 85610; 85730; 81001; 74177; 99284; 96374; 96375; 96361 ×2; J2405; J1885; Q9967

== ENCOUNTER 2020-06-20 09:50 | Emergency (ER) | payer OTHER ==
[2020-06-20 10:06] VITALS: RESP 18
[2020-06-20] MEDS ORDERED: KETOROLAC 15 MG/ML 1 ML VIAL IVP STA (10:19)
[2020-06-20] MEDS ORDERED: SODIUM CHLORIDE 0.9% 1,000 ML IV STA (10:19)
--- NOTE | 2020-06-20 10:27 | ED ---
General Adult HPI - General Chief complaint: Abdominal Pain Stated complaint: R Abd pain Time Seen by Provider: 06/20/20 10:06 Source: patient, RN notes reviewed Mode of arrival: ambulatory Limitations: no limitations - History of Present Illness Initial comments: 59-year-old female with a past medical history of GERD, hypertension, ovarian cysts, hiatal hernia presents to the emergency room for a chief complaint of abdominal pain. Patient reports that she has had right-sided lower abdominal pain for about 2-3 weeks. States he was initially intermittent but now is more constant in nature. She describes it as a sharp pain in the right lower abdomen and side. Denies any upper abdominal pain. Admits to nausea but denies vomiting and diarrhea. Patient denies fever. Patient has no other complaints at this time including shortness of breath, chest pain, vomiting, headache, or visual changes. - Related Data Home Medications Medication Instructions Recorded Confirmed Simvastatin [Zocor] 20 mg PO HS 06/20/20 06/20/20 Ubidecarenone [Co Q-10] 200 mg PO DAILY 06/20/20 06/20/20 Valsartan/Hydrochlorothiazide 1 tab PO DAILY 06/20/20 06/20/20 [Valsartan-Hctz 160-12.5 mg Tab] metFORMIN HCL [Glucophage] 500 mg PO BID 06/20/20 06/20/20 Allergies Allergy/AdvReac Type Severity Reaction Status Date / Time morphine Allergy Nausea & Verified 06/20/20 10:54 Vomiting Review of Systems ROS Statement: Those systems with pertinent positive or pertinent negative responses have been documented in the HPI. ROS Other: All systems not noted in ROS Statement are negative. Past Medical History Past Medical History: GERD/Reflux, Hypertension Additional Past Medical History / Comment(s): Depression, peptic ulcer disease, STOMACH ULCER, CYSTS ON RIGHT OVARY, HITAL HERNIA History of Any Multi-Drug Resistant Organisms: None Reported Past Surgical History: Tubal Ligation Additional Past Surgical History / Comment(s): D&C Past Anesthesia/Blood Transfusion Reactions: No Reported Reaction Additional Past Anesthesia/Blood Transfusion Reaction / Comment(s): no problems with prior blood transfusion Past Psychological History: Depression Smoking Status: Former smoker Past Alcohol Use History: None Reported Past Drug Use History: None Reported - Past Family History Mother Family Medical History: No Reported History General Exam Limitations: no limitations General appearance: alert, in no apparent distress Head exam: Present: atraumatic, normocephalic, normal inspection Eye exam: Present: normal appearance, PERRL, EOMI. Absent: scleral icterus, conjunctival injection, periorbital swelling ENT exam: Present: normal exam, mucous membranes moist Neck exam: Present: normal inspection, full ROM. Absent: tenderness, meningismus, lymphadenopathy Respiratory exam: Present: normal lung sounds bilaterally. Absent: respiratory distress, wheezes, rales, rhonchi, stridor Cardiovascular Exam: Present: regular rate, normal rhythm, normal heart sounds. Absent: systolic murmur, diastolic murmur, rubs, gallop, clicks GI/Abdominal exam: Present: soft, tenderness (RLQ tenderness, no upper abdominal tenderness, no LLQ tenderness), normal bowel sounds. Absent: distended, guarding, rebound, rigid Neurological exam: Present: alert Course Vital Signs 06/20/20 10:04 Temperature 98.4 F Pulse Rate 84 Respiratory 18 Rate Blood Pressure 127/84 O2 Sat by Pulse 96 Oximetry Medical Decision Making - Medical Decision Making Vitals are stable. Patient does have mild right lower quadrant tenderness without guarding or rebound. No CVA tenderness. White blood cell count is no rmal. CBC is unremarkable. CMP shows mild dehydration, patient given fluids. Mild transaminitis. Patient was previously told she has a cyst on her liver. CT CT abdomen and pelvis shows a normal appendix without nephrolithiasis or hydronephrosis. Patient does have hepatic steatosis which could account for her transaminitis. Tiny hiatal hernia noted. Mild splenomegaly at 14.2 is unchanged. Urinalysis unremarkable. Patient was given Toradol and had significant improvement in pain. Patient has seen Dr. Estrada in the past and will follow up with her for possible colonoscopy. She will return here for any worsening symptoms. - Lab Data Result diagrams: 06/20/20 10:06/20/20 10:26 Lab Results 06/20/20 06/20/20 06/20/20 Range/Units 10:26 10: 10:26 WBC 6.8 (3.8-10.6) k/uL RBC 5.25 (3.80-5.40) m/uL Hgb 15.4 (11.4-16.0) gm/dL Hct 45.9 (34.0-46.0) % MCV 87.4 (80.0-100.0) fL MCH 29.3 (25.0-35.0) pg MCHC 33.5 (31.0-37.0) g/dL RDW 13.5 (11.5-15.5) % Plt Count 311 (150-450) k/uL Neutrophils % 57 % Lymphocytes % 29 % Monocytes % 7 % Eosinophils % 4 % Basophils % 1 % Neutrophils # 3.9 (1.3-7.7) k/uL Lymphocytes # 1.9 (1.0-4.8) k/uL Monocytes # 0.5 (0-1.0) k/uL Eosinophils # 0.3 (0-0.7) k/uL Basophils # 0.1 (0-0.2) k/uL Sodium 137 (137-145) mmol/L Potassium 4.0 (3.5-5.1) mmol/L Chloride 103 (98-107) mmol/L Carbon Dioxide 26 (22-30) mmol/L Anion Gap 8 mmol/L BUN 22 H (7-17) mg/dL Creatinine 0.68 (0.52-1.04) mg/dL Est GFR (CKD-EPI)AfAm >90 (>60 ml/min/1.73 sqM) Est GFR (CKD-EPI)NonAf >90 (>60 ml/min/1.73 sqM) Glucose 169 H (74-99) mg/dL Plasma Lactic Acid Herman (0.7-2.0) mmol/L Calcium 9.7 (8.4-10.2) mg/dL Total Bilirubin 0.9 (0.2-1.3) mg/dL AST 44 H (14-36) U/L ALT 51 H (4-34) U/L Alkaline Phosphatase 90 (38-126) U/L Total Protein 7.6 (6.3-8.2) g/dL Albumin 4.4 (3.5-5.0) g/dL Amylase 46 (30-110) U/L Lipase 72 (23-300) U/L Urine Color Yellow Urine Appearance Cloudy H (Clear) Urine pH 5.5 (5.0-8.0) Ur Specific [place] 1.032 (1.001-1.035) Urine Protein Trace H (Negative) Urine Glucose (UA) Negative (Negative) Urine Ketones Negative (Negative) Urine Blood Negative (Negative) Urine Nitrite Negative (Negative) Urine Bilirubin Negative (Negative) Urine Urobilinogen <2.0 (<2.0) mg/dL Ur Leukocyte Esterase Negative (Negative) Urine RBC 1 (0-5) /hpf Urine WBC 2 (0-5) /hpf Ur Squamous Epith Cells 9 H (0-4) /hpf Urine Bacteria Occasional H (None) /hpf Urine Mucus Few H (None) /hpf 15/20 Range/Units 10:26 WBC (3.8-10.6) k/uL RBC (3.80-5.40) m/uL Hgb (11.4-16.0) gm/dL Hct (34.0-46.0) % MCV (80.0-100.0) fL MCH (25.0-35.0) pg MCHC (31.0-37.0) g/dL RDW (11.5-15.5) % Plt Count (150-450) k/uL Neutrophils % % Lymphocytes % % Monocytes % % Eosinophils % % Basophils % % Neutrophils # (1.3-7.7) k/uL Lymphocytes # (1.0-4.8) k/uL Monocytes # (0-1.0) k/uL Eosinophils # (0-0.7) k/uL Basophils # (0-0.2) k/uL Sodium (137-145) mmol/L Potassium (3.5-5.1) mmol/L Chloride (98-107) mmol/L Carbon Dioxide (22-30) mmol/L Anion Gap mmol/L BUN (7-17) mg/dL Creatinine (0.52-1.04) mg/dL Est GFR (CKD-EPI)AfAm (>60 ml/min/1.73 sqM) Est GFR (CKD-EPI)NonAf (>60 ml/min/1.73 sqM) Glucose (74-99) mg/dL Plasma Lactic Acid Herman 1.2 (0.7-2.0) mmol/L Calcium (8.4-10.2) mg/dL Total Bilirubin (0.2-1.3) mg/dL AST (14-36) U/L ALT (4-34) U/L Alkaline Phosphatase (38-126) U/L Total Protein (6.3-8.2) g/dL Albumin (3.5-5.0) g/dL Amylase (30-110) U/L Lipase (23-300) U/L Urine Color Urine Appearance (Clear) Urine pH (5.0-8.0) Ur Specific [place] (1.001-1.035) Urine Protein (Negative) Urine Glucose (UA) (Negative) Urine Ketones (Negative) Urine Blood (Negative) Urine Nitrite (Negative) Urine Bilirubin (Negative) Urine Urobilinogen (<2.0) mg/dL Ur Leukocyte Esterase (Negative) Urine RBC (0-5) /hpf Urine WBC (0-5) /hpf Ur Squamous Epith Cells (0-4) /hpf Urine Bacteria (None) /hpf Urine Mucus (None) /hpf Disposition Clinical Impression: Abdominal pain Disposition: HOME SELF-CARE Condition: Good Instructions (If sedation given, give patient instructions): Abdominal Pain (ED) Additional Instructions: Please follow up with primary care in 1-2 days. Follow up with GI as well. If pain is severe take Tylenol [address] operate machinery while taking this. Please return to the emergency room for any worsening symptoms. Is patient prescribed a controlled substance at d/c from ED?: No Referrals: Court Guthrie MD [Primary Care Provider] - 1-2 days Time of Disposition: 11:49
[2020-06-20 10:34] LABS: Basophils # (A) 0.1 k/uL (0-0.2); Basophils % (A) 1 %; Eosinophils # (A) 0.3 k/uL (0-0.7); Eosinophils % (A) 4 %; HCT 45.9 % (34.0-46.0); HGB 15.4 gm/dL (11.4-16.0); Lymphocytes # (A) 1.9 k/uL (1.0-4.8); Lymphocytes % (A) 29 %; MCH 29.3 pg (25.0-35.0); MCHC 33.5 g/dL (31.0-37.0); MCV 87.4 fL (80.0-100.0); Mean Platelet Volume 6.9; Monocytes # (A) 0.5 k/uL (0-1.0); Monocytes % (A) 7 %; Neutrophils # (A) 3.9 k/uL (1.3-7.7); Neutrophils % (A) 57 %; Platelet Count 311 k/uL (150-450); RBC 5.25 m/uL (3.80-5.40); RDW 13.5 % (11.5-15.5); WBC 6.8 k/uL (3.8-10.6)
[2020-06-20 10:41] LABS: Appearance,Urine Cloudy (Clear); Bacteria,Urine Occasional /hpf; Bilirubin,Urine Negative (Negative); Blood,Urine Negative (Negative); Color,Urine Yellow; Glucose,Urine (UA) Negative (Negative); Ketones,Urine Negative (Negative); Leukocyte Esterase,Urine Negative (Negative); Mucus,Urine Few /hpf; Nitrite,Urine Negative (Negative); PH, Urine 5.5 (5.0-8.0); Protein,Urine Trace (Negative); RBC,Urine 1 /hpf (0-5); Specific Gravity,Urine 1.032 (1.001-1.035); Squamous Epithelial Cell,Urine 9 /hpf (0-4); Urobilinogen,Urine <2.0 mg/dL (<2.0); WBC,Urine 2 /hpf (0-5)
[2020-06-20 10:46] LABS: ALT 51 U/L (4-34); AST 44 U/L (14-36); African American GFR (CKD) >90 (>60 ml/min/1.73 sqM); Albumin 4.4 g/dL (3.5-5.0); Alkaline Phosphatase 90 U/L (38-126); Amylase 46 U/L (30-110); Anion Gap 8 mmol/L; Blood Urea Nitrogen 22 mg/dL (7-17); Calcium 9.7 mg/dL (8.4-10.2); Carbon Dioxide 26 mmol/L (22-30); Chloride 103 mmol/L (98-107); Glucose 169 mg/dL (74-99); Non-African American GFR(CKD) >90 (>60 ml/min/1.73 sqM); Sodium 137 mmol/L (137-145); Total Bilirubin 0.9 mg/dL (0.2-1.3); Total Protein 7.6 g/dL (6.3-8.2)
--- NOTE | 2020-06-20 11:24 | CT ---
EXAMINATION TYPE: CT abdomen pelvis w con DATE OF EXAM: 06/20/2020 COMPARISON: 11/10/2019 HISTORY: 51-year-old female with right sided abdominal pain TECHNIQUE: Contiguous axial scanning of the abdomen and pelvis following administration of 100 ml Iso tessa 300 IV contrast. Delayed images through the kidneys and coronal/sagittal reconstructions perform ed. CT DLP: 3732.4 mGycm Automated exposure control for dose reduction was used. FINDINGS: Heart normal size without pericardial effusion. Lung bases clear without pleural effusion. Tiny hiatal hernia. Liver borderline enlarged at 17.3 cm with low attenuation and some fatty sparing along the gallbladde r fossa. Portal venous system is patent. No biliary ductal dilatation. No abnormal gallbladder distention or wall thickening. Right adrenal gland and pancreas appear within normal limits. Mild splenomegaly of 14.2 cm, unchanged. Mild diffuse thickening of the left adrenal gland without discrete nodularity, unchanged. 2.1 cm cortical cyst anterolateral upper pole left kidney and tiny 7 mm subcentimeter hypodensity low er pole right kidney too small for accurate CT characterization, likely also cysts. Symmetric uptake of contrast from both kidneys. No dilated small bowel, free fluid, free air. No mesenteric or retroperitoneal lymphadenopathy. Normal appendix. Small to moderate stool. No pericolonic inflammatory change. Bladder not distended. A few pelvic lymph nodes are noted. Uterus anteverted. Small bilateral ovaries . No abnormal fluid collection in the pelvis or pelvic lymphadenopathy. Bones: Osteitis pubis. Mild degenerative change at the hips. Mild to moderate degenerative disc disea se L5-S1. Hypertrophic facet arthropathy lower lumbar spine. [facility] within the lower thoracic spine. IMPRESSION: 1. NORMAL APPENDIX. 2. NO NEPHROLITHIASIS OR HYDRONEPHROSIS. 3. HEPATIC STEATOSIS. 4 TINY HIATAL HERNIA. 5. MILD SPLENOMEGALY AT 14.2 CM IS UNCHANGED.
[2020-06-20] MEDS ORDERED: ACET/COD 300 MG/30 MG STARTER PACK 6 TAB BTL PO STA (11:49)
[2020-06-20 12:02] VITALS: BP 135/74; PULSE 72; TEMP 98.3
== END 2020-06-20 12:03 | disposition home or self-care (01) ==
LOC: EC 09:50
DX: R10.31 Right lower quadrant pain (principal); R10.813 Right lower quadrant abdominal tenderness; K76.89 Other specified diseases of liver; R74.01 Elevation of levels of liver transaminase levels; K76.0 Fatty (change of) liver, not elsewhere classified; K44.9 Diaphragmatic hernia without obstruction or gangrene; R16.1 Splenomegaly, not elsewhere classified; I10 Essential (primary) hypertension; Z79.84 Long term (current) use of oral hypoglycemic drugs; Z79.899 Other long term (current) drug therapy; Z88.5 Allergy status to narcotic agent; Z87.891 Personal history of nicotine dependence
CPT/HCPCS: 99284 ×2; 96374 ×2; 96361 ×2; 36415; 80053; 82150; 83605; 83690; 85025; 81001; 74177; J1885; Q9967

== ENCOUNTER → 2020-11-07 | Outpatient (CLI) | payer OTHER ==
--- NOTE | 2020-11-07 15:33 | BD ---
EXAMINATION TYPE: Axial Bone Density DATE OF EXAM: 11/07/2020 COMPARISON: NONE CLINICAL HISTORY: 60 YR OLD FEMALE....ICD-10 CODE: N95.1 POST MENOPAUSAL Height: 60.4 Weight: 306 FRAX RISK QUESTIONS: Family History (Parent hip fracture): NO FX History of Fracture in Adulthood: YES RISK FACTORS HISTORY OF: History of Wrist Fracture: LT WRIST, AFTER 51 YRS OLD Family History of Osteoporosis: YES, MOTHER AND COUSIN, NO HIP FXs Postmenopausal woman: YES, AT ABOUT 53 YRS OLD Lost more than 2 inches in height since high school: YES Hyperparathyroidism: NO Adrenal Insufficiency: NO MEDICATIONS: Additional Medications: BP MEDS, DIABETIC MEDS, STATIN FOR CHOLESTEROL, Additional History: DIABETES, HYPERTENSION, CHOLESTEROL EXAM MEASUREMENTS: Bone mineral densitometry was performed using the [employer]day System. Bone mineral density as measured about the Lumbar spine is: ----- L1-L4(G/cm2): 1.140 T Score Values are as follows: ----- L1: -0.5 ----- L2: -0.9 ----- L3: -0.1 ----- L4: 0.0 ----- L1-L4: -0.3 Bone mineral density FIRST DEXA SCAN........BASELINE STUDY Bone mineral density about the R hip (g/cm2): 0.911 Bone mineral density about the L hip (g/cm2): 0.863 T Score values are as follows: -----R Neck: -1.8 -----L Neck: -1.9 -----R Total: -0.8 -----L Total: -1.1 Bone mineral density BASELINE STUDY FRAX%s: THERE IS A 11.7% CHANCE FOR A MAJOR OSTEOPOROTIC FX AND A 1.2% FOR HIP......PROBABILITY FO R FX IN 10 YRS TIME IMPRESSION: Osteopenia (T Score between -2.5 and -1) FEMORAL NECK LEVEL BOTH HIPS. There is slightly increased risk of fracture and the patient may be considered for treatment. Re-Screen 2-5 years. NOTE: T-SCORE=SD OF THE YOUNG ADULT MEAN.
== END ==
LOC: RADBDWWP 13:15
PROVIDERS: ATTEND Internal Medicine
DX: M85.89 Other specified disorders of bone density and structure, multiple sites (principal); Z78.0 Asymptomatic menopausal state
CPT/HCPCS: 77080